=== PATIENT | female | born 1975 | race Caucasian/White ===

== ENCOUNTER → 2016-02-27 | Outpatient (CLI) | payer MEDICAID ==
--- NOTE | 2016-02-27 19:31 | DX ---
Right Ankle - 2 Views dated February 27, 2016 Indication: Anterior pain. History of fracture. Evaluate for reinjury. Technique: AP and lateral views. Comparison: Right ankle series dated October 16, 2013. Findings: The bones are anatomically aligned. No acute fracture. The ankle mortise and joint spaces a re well preserved. No soft tissue calcification or swelling. Impression: Negative. No evidence of recurrent fracture or arthropathy.
== END ==
LOC: FIMAGING 15:25
PROVIDERS: ATTEND Family Medicine
DX: M25.571 Pain in right ankle and joints of right foot (principal)

== ENCOUNTER 2016-07-30 00:36 | Emergency (ER) | payer MEDICAID ==
[2016-07-30 00:43] VITALS: TEMP 98.1
--- NOTE | 2016-07-30 01:23 | EDPHY ---
H & P Stated Complaint: dog bite to R hand below 5th finger Time Seen by Provider: 07/30/16 00:49 HPI/ROS: HPI The patient presents with dog bite to right pinky finger which happened just prior to presentation. A friend's dog who is had its vaccines bit her on her hand. She is had pain which is mild, worse when she moves her finger, and has been constant. She is concerned because her finger will not fully extend to the same extent that her contralateral pinky finger will extend. She is right- hand dominant. Her tetanus vaccine is up-to-date.. REVIEW OF SYSTEMS Constitutional: No fever, no chills. Skin: No rashes. Neurological: No headache. PMHx: Hypothyroid, celiac disease Soc Hx: Works in [place], lives in [place] PHYSICAL General Appearance: Alert, no distress Eyes: Pupils equal and round no pallor or injection ENT, Mouth: Mucous membranes moist Respiratory: Breathing comfortably Neurological: A&O, moves all extremities Skin: Warm and dry, no rashes Musculoskeletal: Neck is supple Extremities: Right pinky finger with 2 1 cm superficial linear lacerations near the medial MCP joint, there is brisk cap refill and sensation is intact throughout the digit, she is able to extend at the MCP, though not hyperextend, flexion is intact though is somewhat weak at to the DI P and PIP joint though normal at the MCP joint Psychiatric: Patient is oriented X 3, there is no agitation Source: Patient Exam Limitations: No limitations - Personal History Current Tetanus/Diphtheria Vaccine: Yes Current Tetanus Diphtheria and Acellular Pertussis (TDAP): Yes Tetanus Vaccine Date: feb 2014 - Medical/Surgical History Hx Asthma: No Hx Chronic Respiratory Disease: No Hx Diabetes: No Hx Cardiac Disease: No Hx Renal Disease: No Hx Cirrhosis: No Hx Alcoholism: No Hx HIV/AIDS: No Hx Splenectomy or Spleen Trauma: No Other PMH: hashimotos/hypothyroid, celiac, TBI 2010, ovarian cyst rupture 2010, mitral valve prolapse, PNA 2011,kidney stones 15 years ago, IBS - Social History Smoking Status: Never smoked Constitutional: Initial Vital Signs Temperature (C) 36.7 C 07/30/16 00:39 Heart Rate 110 H 07/30/16 00:39 Respiratory Rate 18 07/30/16 00:39 Blood Pressure 158/108 H 07/30/16 00:39 O2 Sat (%) 98 06/16/17 00:39 O2 Delivery Mode Room Air Allergies/Adverse Reactions: cefazolin sodium [From Ancef] Allergy (Verified 08/04/13 19:29) gluten Allergy (Verified 11/13/14 15:58) Abdominal Pain Penicillins Allergy (Verified 08/04/13 19:29) Sulfa (Sulfonamide Antibiotics) Allergy (Verified 08/04/13 19:29) Home Medications: Medication Instructions Recorded Amphet Asp and D/Amphet [Adderall 20 mg PO BID@0800,1200 11/12/14 20 mg (*)] Cyclobenzaprine [Flexeril 10 MG 10 mg PO TID PRN 11/12/14 (*)] Levothyroxine [Synthroid 100 mcg 100 mcg PO DAILY06 11/12/14 (*)] Ondansetron Odt [Zofran Odt 4 mg 4 mg PO Q4 PRN #15 tab 11/14/14 (*)] Clindamycin HCl [Cleocin HCl] 450 mg PO TID #63 capsule 07/30/16 Doxycycline Hyclate 100 mg PO BID #14 capsule 07/30/16 Medical Decision Making - Diagnostics Imaging Results: X-ray right hand two views shows no fracture, no dislocation, no foreign body, interpreted by me and radiology interpretation is pending. Imaging: I viewed and interpreted images myself Differential Diagnosis: This is a 41-year-old female status post dog bite earlier this evening to right 5th finger. She is neurovascularly intact, though has some difficulty with full flexion and extension of the digit which raises suspicion for possible tendon injury. Fractures also consideration. In the emergency room, her wound was extensively irrigated. She was started on Augmentin. X-ray was normal for fracture. She was placed in a finger splint. I have given her information for hand follow-up in the case that she may have a partial tendon injury. I have explained this to her. She is in agreement with the plan. - Data Points Medications Given: Discontinued Medications Clindamycin (Clindamycin) 150 mg PO EDNOW ONE PRN Reason: Protocol Stop: 07/30/16 01:33 Last Admin: 07/30/16 01:41 Dose: 150 mg Doxycycline Hyclate (Doxycycline Hyclate) 100 mg PO EDNOW ONE PRN Reason: Protocol Stop: 07/30/16 01:33 Last Admin: 07/30/16 01:41 Dose: 100 mg Departure - Departure Disposition: Home, Routine, Self-Care Clinical Impression: Dog bite Qualifiers: Encounter type: initial encounter Qualified Code(s): W54.0XXA - Bitten by dog, initial encounter Finger injury Qualifiers: Encounter type: initial encounter Laterality: right Qualified Code(s): S69.91XA - Unspecified injury of right wrist, hand and finger(s), initial encounter Condition: Good Instructions: Animal Bite (ED) Additional Instructions: Please wear the splint until your evaluated by the hand specialist. Please call for an appointment to be seen within the next few days. He should return if there is any redness, swelling, increased pain from the site of the wound. Referrals: Janet Sims MD [Primary Care Provider] - As per Instructions Seun Henley MD [Medical Doctor] - As per Instructions Prescriptions: Clindamycin HCl [Cleocin HCl] 450 mg PO TID #63 capsule Doxycycline Hyclate 100 mg PO BID #14 capsule
[2016-07-30] MEDS ORDERED: CLINDAMYCIN 150 MG CAP PO ONE (01:32)
[2016-07-30] MEDS ORDERED: DOXYCYCLINE HYCLATE 100 MG CAP/TAB PO ONE (01:32)
[2016-07-30 01:43] VITALS: BP 134/89; PULSE 87; RESP 16; O2SAT 96
== END 2016-07-30 01:43 | disposition home or self-care (01) ==
DX: S61.256A Open bite of right little finger without damage to nail, initial encounter (principal); W54.0XXA Bitten by dog, initial encounter
CPT/HCPCS: L3925

== ENCOUNTER 2017-10-14 11:30 | Emergency (ER) | payer MEDICAID ==
[2017-10-14] MEDS ORDERED: ONDANSETRON 4 MG/2 ML VIAL IVP ONE (11:51)
[2017-10-14] MEDS ORDERED: HYDROmorphONE/DILAUDID 2 MG/ML INJ IVP ONE (11:51)
[2017-10-14] MEDS ORDERED: KETOROLAC 30 MG/1 ML SDV IVP ONE (11:51)
[2017-10-14] MEDS ORDERED: NS 1,000 ML IV ONE (11:51)
--- NOTE | 2017-10-14 11:52 | EDPHY ---
H & P Stated Complaint: c/o RLQ pain x 1 day, nausea but no vomiting Time Seen by Provider: 10/14/17 11:46 - Personal History Tetanus Vaccine Date: feb 2014 - Medical/Surgical History Hx Asthma: No Hx Chronic Respiratory Disease: Yes Hx Diabetes: No Hx Cardiac Disease: No Hx Renal Disease: No Hx Cirrhosis: No Hx Alcoholism: No Hx HIV/AIDS: No Hx Splenectomy or Spleen Trauma: No Other PMH: hashimotos/hypothyroid, celiac, TBI 2010, ovarian cyst rupture 2010, mitral valve prolapse, PNA 2011,kidney stones 15 years ago, IBS, asthma - env triggered, appendectomy, tonsillectomy, cholecystectomy - Social History Smoking Status: Former smoker Constitutional: Initial Vital Signs Temperature (C) 36.7 C 10/14/17 11:33 Heart Rate 78 10/14/17 11:33 Respiratory Rate 16 10/14/17 11:33 Blood Pressure 138/80 H 10/14/17 11:33 O2 Sat (%) 97 10/14/17 11:33 O2 Delivery Mode Room Air Allergies/Adverse Reactions: Beef Containing Products [beef] Allergy (Verified 10/14/17 11:39) cefazolin sodium [From Ancef] Allergy (Verified 10/14/17 11:39) gluten Allergy (Verified 10/14/17 11:39) Abdominal Pain Penicillins Allergy (Verified 10/14/17 11:39) Sulfa (Sulfonamide Antibiotics) Allergy (Verified 10/14/17 11:39) Home Medications: Medication Instructions Recorded Amphet Asp and D/Amphet [Adderall 20 mg PO BID@0800,1200 11/12/14 20 mg (*)] Levothyroxine [Synthroid 100 mcg 100 mcg PO DAILY06 11/12/14 (*)] Ondansetron Odt [Zofran Odt 4 mg 4 mg PO Q4 PRN #15 tab 11/14/14 (*)] Albuterol 10/14/17 Gabapentin 10/14/17 Medical Decision Making - Diagnostics Imaging Results: Imaging Impressions Pelvic/Renal Ultrasound 10/14/17 11:51 Impression: Normal pelvic ultrasound. Findings discussed with Mina Valenzuela MD 10/14/2017 at 13:32. Abdomen CT 10/14/17 13:34 Impression: 1. Negative for acute abdominopelvic process. 2. Extra and intrahepatic ductal dilatation, to be expected for postcholecystectomy state. 3. Moderate stool in the colon. Findings and recommendations discussed with Mina Valenzuela MD at 1425 hour, . Imaging: Discussed imaging studies w/ director digital strategy Radiologist ED Course/Re-evaluation: CHIEF COMPLAINT: Abdominal pain HISTORY OF PRESENT ILLNESS: This is a 42 y/o female complaining of RLQ abdominal pain onset yesterday after coughing and worsening since then. Pain is sharp in quality and she describes it as "cringy, shooting to the back, just can 't get away from it" along her lower abdomen. She has some associated pain in her right flank. Pain feels somewhat similar to a prior ruptured ovarian cyst, but not as crampy. She denies dysuria, but does have some hesitancy when urinating. Abdominal surgical history includes appendectomy, cholecystectomy. REVIEW OF SYSTEMS: A comprehensive 10 system review of systems is otherwise negative aside from elements mentioned in the history of present illness and medical decision making. PHYSICAL EXAM: HR, BP, O2 Sat, RR. Temp noted General Appearance: Alert, well hydrated, appropriate, and non-toxic appearing. Head: Atraumatic without scalp tenderness or obvious injury Eyes: Pupils equal, round, reactive to light and accommodation, EOMI, no trauma , no injection. Nose: Atraumatic, no rhinorrhea, clear. Throat: Mucus membranes moist. Neck: Supple. Respiratory: No retractions, no distress, no wheezes, and no accessory muscle use. Lungs are clear to auscultation bilaterally. Cardiovascular: Regular rate and rhythm, no murmurs, rubs, or gallops. Good capillary refill all extremities. Gastrointestinal: Abdomen is soft, mild RLQ tenderness, non-distended, no masses , no rebound, no guarding, no peritoneal signs. Musculoskeletal: Normal active ROM of all extremities, atraumatic. Neurological: Alert, appropriate, and interactive. Nonfocal. Skin: No rashes, good turgor, no nodules on palpation. PAST MEDICAL HISTORY: Chon's/hypothyroid, celiac, TBI 2010, ovarian cyst rupture 2010, mitral valve prolapse, PNA 2011, kidney stones 15 years ago, IBS, asthma - env triggered PAST SURGICAL HISTORY: Appendectomy, tonsillectomy, cholecystectomy SOCIAL HISTORY: Lives in [place]. Self-employed. PCP: Dr. Templeton. DIAGNOSTICS/PROCEDURES/CRITICAL CARE TIME: Pelvic US: negative Abdominal CT: negative for acute findings DIFFERENTIAL DIAGNOSIS: The differential diagnosis for the patient's abdominal pain included but was not limited to ovarian cyst, pelvic inflammatory disease, ovarian torsion, urinary tract infection, ectopic , cholecystitis, and appendicitis. MEDICAL DECISION [id number] y/o female status post appendectomy who presents with RLQ pain onset after coughing yesterday. Associated with flank pain and urinary hesitancy. Could represent ovarian etiology vs. bowel. Plan for IV, labs, UA, pelvic US, and symptomatic management. 4mg IV Zofran, 1mg IV Dilaudid, 30mg IV Toradol, and 1L IV NS ordered. US negative. Abdominal CT ordered. CT negative for acute findings. She is feeling improved and comfortable going home. She will be discharged with script for Pickerel and standard care and follow up instructions. Return precautions discussed. - Data Points Laboratory Results: Laboratory Results 10/14/17 11:50 10/14/17 11:50 10/14/17 10/14/17 10/14/17 12:30 11:58 11:50 WBC RBC Hgb POC Hgb 13.9 gm/dL gm/dL (12.6-16.3) Hct POC Hct 41 % % (38-47) MCV MCH MCHC RDW Plt Count MPV Neut % (Auto) Lymph % (Auto) Ida % (Auto) Eos % (Auto) Baso % (Auto) Nucleat RBC Rel Count Absolute Neuts (auto) Absolute Lymphs (auto) Absolute Monos (auto) Absolute Eos (auto) Absolute Basos (auto) Absolute Nucleated RBC Immature Gran % Immature Gran # POC Sodium 138 mEq/L mEq/L (135-145) Sodium POC Potassium 3.3 mEq/L mEq/L (3.3-5.0) Potassium POC Chloride 101 mEq/L mEq/L (97-110) Chloride Carbon Dioxide Anion Gap POC BUN 7 mg/dL mg/dL (7-23) BUN Creatinine POC Creatinine 0.7 mg/dL mg/dL (0.6-1.0) Estimated GFR Glucose POC Glucose 103 mg/dL H mg/dL (70-100) Calcium Beta HCG, Qual NEGATIVE Urine Color PALE YELLOW Urine Appearance CLEAR Urine pH 6.0 (5.0-7.5) Ur Specific [place] 1.003 (1.002-1.030) Urine Protein NEGATIVE (NEGATIVE) Urine Ketones NEGATIVE (NEGATIVE) Urine Blood NEGATIVE (NEGATIVE) Urine Nitrate NEGATIVE (NEGATIVE) Urine Bilirubin NEGATIVE (NEGATIVE) Urine Urobilinogen NEGATIVE EU EU (0.2-1.0) Ur Leukocyte Esterase NEGATIVE (NEGATIVE) Urine RBC NONE SEEN /hpf /hpf (0-3) Urine WBC 1-3 /hpf /hpf (0-3) Ur Epithelial Cells NONE SEEN /lpf /lpf (NONE-1+) Urine Bacteria TRACE /hpf H /hpf (NONE SEEN) Urine Glucose NEGATIVE (NEGATIVE) 10/14/17 10/14/17 11:50 11:50 WBC 10.94 10^3/uL H 10^3/uL (3.80-9.50) RBC 4.36 10^6/uL 10^6/uL (4.18-5.33) Hgb 13.6 g/dL g/dL (12.6-16.3) POC Hgb Hct 39.2 % % (38.0-47.0) POC Hct MCV 89.9 fL fL (81.5-99.8) MCH 31.2 pg pg (27.9-34.1) MCHC 34.7 g/dL g/dL (32.4-36.7) RDW 11.9 % % (11.5-15.2) Plt Count 387 10^3/uL 10^3/uL (150-400) MPV 9.7 fL fL (8.7-11.7) Neut % (Auto) 69.0 % % (39.3-74.2) Lymph % (Auto) 21.0 % % (15.0-45.0) Ida % (Auto) 8.6 % % (4.5-13.0) Eos % (Auto) 0.6 % % (0.6-7.6) Baso % (Auto) 0.6 % % (0.3-1.7) Nucleat RBC Rel Count 0.0 % % (0.0-0.2) Absolute Neuts (auto) 7.54 10^3/uL H 10^3/uL (1.70-6.50) Absolute Lymphs (auto) 2.30 10^3/uL 10^3/uL (1.00-3.00) Absolute Monos (auto) 0.94 10^3/uL H 10^3/uL (0.30-0.80) Absolute Eos (auto) 0.07 10^3/uL 10^3/uL (0.03-0.40) Absolute Basos (auto) 0.07 10^3/uL 10^3/uL (0.02-0.10) Absolute Nucleated RBC 0.00 10^3/uL 10^3/uL (0-0.01) Immature Gran % 0.2 % % (0.0-1.1) Immature Gran # 0.02 10^3/uL 10^3/uL (0.00-0.10) POC Sodium Sodium 136 mEq/L mEq/L (135-145) POC Potassium Potassium 3.6 mEq/L mEq/L (3.3-5.0) POC Chloride Chloride 103 mEq/L mEq/L (97-110) Carbon Dioxide 23 mEq/l mEq/l (22-31) Anion Gap 10 mEq/L mEq/L (8-16) POC BUN BUN 9 mg/dL mg/dL (7-23) Creatinine 0.7 mg/dL mg/dL (0.6-1.0) POC Creatinine Estimated GFR > 60 Glucose 101 mg/dL H mg/dL (70-100) POC Glucose Calcium 9.7 mg/dL mg/dL (8.5-10.4) Beta HCG, Qual Urine Color Urine Appearance Urine pH Ur Specific [place] Urine Protein Urine Ketones Urine Blood Urine Nitrate Urine Bilirubin Urine Urobilinogen Ur Leukocyte Esterase Urine RBC Urine WBC Ur Epithelial Cells Urine Bacteria Urine Glucose Medications Given: Discontinued Medications Hydromorphone HCl (Dilaudid) 1 mg IVP EDNOW ONE Stop: 10/14/17 11:52 Last Admin: 10/14/17 12:11 Dose: 1 mg Sodium Chloride (Ns) 1,000 mls @ 0 mls/hr IV EDNOW ONE; Wide Open PRN Reason: Protocol Stop: 10/14/17 11:52 Last Admin: 10/14/17 12:11 Dose: 1,000 mls Ketorolac Tromethamine (Toradol) 30 mg IVP EDNOW ONE Stop: 10/14/17 11:52 Last Admin: 10/14/17 12:11 Dose: 30 mg Ondansetron HCl (Zofran) 4 mg IVP EDNOW ONE Stop: 10/14/17 11:52 Last Admin: 10/14/17 12:11 Dose: 4 mg Point of Care Test Results: Chemistry 10/14/17 11:58 POC Sodium 138 mEq/L mEq/L (135-145) POC Potassium 3.3 mEq/L mEq/L (3.3-5.0) POC Chloride 101 mEq/L mEq/L (97-110) POC BUN 7 mg/dL mg/dL (7-23) POC Creatinine 0.7 mg/dL mg/dL (0.6-1.0) POC Glucose 103 mg/dL H mg/dL (70-100) ISTAT H&H 10/14/17 11:58 POC Hgb 13.9 gm/dL gm/dL (12.6-16.3) POC Hct 41 % % (38-47) Departure - Departure Disposition: Home, Routine, Self-Care Clinical Impression: Abdominal pain Qualifiers: Abdominal location: right lower quadrant Qualified Code(s): R10.31 - Right lower quadrant pain Condition: Good Instructions: Abdominal Pain (ED) Additional Instructions: Take Pickerel as prescribed as needed for severe pain. This medication can cause constipation and drowsiness. Do not use prior to driving. Follow up with your primary care provider for unimproved symptoms over the weekend. Return for worsening of condition. Referrals: Vale Templeton MD [Primary Care Provider] - As per Instructions Report Scribed for: Mina Valenzuela Report Scribed by: Yaneth Veliz Date of Report: 10/14/17 Time of Report: 12:48
[2017-10-14 12:10] LABS: PLATELET COUNT 387 10^3/uL (150-400)
[2017-10-14] MEDS ORDERED: IOPAMIDOL (ISOVUE-300) 100 ML BTL ONE (13:55)
[2017-10-14 14:55] VITALS: BP 96/61
== END 2017-10-14 14:55 | disposition home or self-care (01) ==
DX: R10.31 Right lower quadrant pain (principal); E86.9 Volume depletion, unspecified; Z87.891 Personal history of nicotine dependence
CPT/HCPCS: 82435-PO; 82565-PO; 82947-PO; 84132-PO; 84295-PO; 84520-PO; 85014-PO; 96374; J1170; J1885; J2405; Q9967